=== PATIENT | female | born 1995 | race Two or more races ===

== ENCOUNTER 2023-12-19 16:49 | Emergency (ER) | payer OTHER ==
[~2023-12-19] VITALS: Ht 170.2 cm; Wt 79.4 kg
[2023-12-19] MEDS ORDERED: DEXAMETHASONE SODIUM PHOSPHATE 4 MG/ML VIAL IM ONE (19:00)
[2023-12-19] MEDS ORDERED: KETOROLAC TROMETHAMINE 30 MG VIAL IM ONE (19:00)
[2023-12-19] MEDS ORDERED: KETO10TA2 PO (20:15)
[2023-12-19] MEDS ORDERED: DICLOFENAC SODI50 GM TOP (20:15)
== END 2023-12-19 22:02 | disposition home or self-care (01) ==
LOC: ER 16:49
DX: M67.432 Ganglion, left wrist (principal)
CPT/HCPCS: 73110; 96372; J1100; J1885